=== PATIENT | female | born 1965 | race Caucasian/White ===

== ENCOUNTER 2017-01-27 10:57 | Inpatient (IN) | payer SELFPAY ==
[~2017-01-27] VITALS: Ht 162.6 cm; Wt 66.0 kg
[2017-01-27] VITALS (8 sets, daily range): BP systolic 94–106; BP diastolic 53–70; PULSE 58–75; RESP 12–18; TEMP 98–98.5; O2SAT 95–100
[2017-01-27] MEDS ORDERED: TRAZ100T6 PO (12:32)
[2017-01-27] MEDS ORDERED: ZOLO100T PO (12:32)
[2017-01-27] MEDS ORDERED: SODIUM CHLOR 0.9% 1000 ML INJ 1,000 ML IV ONE (12:40)
[2017-01-27] MEDS ORDERED: LORazepam 2 MG/ML VIAL IV PUSH ONE ×2 (12:45→14:00)
[2017-01-27] MEDS ORDERED: SODIUM CHLORIDE 0.9% FLUSH 10 ML FLUSH IVF PRN (12:45)
[2017-01-27] MEDS ORDERED: ONDANSETRON HCL 4 MG/2 ML VIAL IVP ONE (12:45)
[2017-01-27 13:14] LABS: AUTOMATED NEUTROPHIL # 3.6 TH/MM3 (1.8-7.7); BASOPHIL % 0.4 % (0.0-2.0); EOSINOPHIL # 0.1 TH/MM3 (0-0.4); EOSINOPHIL % 2.3 % (0.0-4.0); HEMATOCRIT 36.8 % (35.0-46.0); HEMO FLAGS DIFF FINAL; LYMPH % 35.1 % (9.0-44.0); LYMPHOCYTE # 2.2 TH/MM3 (1.0-4.8); MEAN CELL VOLUME 85.1 FL (80.0-100.0); MEAN CORPUSCULAR HEMOGLOBIN 29.2 PG (27.0-34.0); MEAN CORPUSCULAR HGB CONC 34.3 % (32.0-36.0); MONO % 4.4 % (0.0-8.0); NEUT % 57.8 % (16.0-70.0); PLATELET COUNT 227 TH/MM3 (150-450); RED BLOOD COUNT 4.32 MIL/MM3 (4.00-5.30); RED CELL DISTRIBUTION WIDTH 13.8 % (11.6-17.2); WHITE BLOOD COUNT 6.3 TH/MM3 (4.0-11.0)
[2017-01-27 13:25] LABS: BICARBONATE 24.8 MEQ/L (21.0-32.0); POTASSIUM 4.1 MEQ/L (3.5-5.1)
[2017-01-27] MEDS ORDERED: LORA-392 PO (15:00)
[2017-01-27] MEDS ORDERED: MECL-62 PO (15:00)
[2017-01-27] MEDS ORDERED: CARB6.5S5 RIGHT EAR (15:01)
--- NOTE | 2017-01-27 15:01 | PD ---
HPI Chief Complaint: Dizziness Time Seen by Provider: 12:06 Travel History International Travel<30 days: No Contact w/Intl Traveler<30days: No Traveled to known affect area: No History of Present Illness HPI 51-year-old female arrives to the ER with a complaint of dizziness, vertiginous in nature. She reports right otalgia. Duration a few days. No fever. Positive vomiting once yesterday with intermittent nausea since. Patient denies past medical history. No similar prior episode. Onset gradual. Timing constant. PFSH Social History Tobacco Use: Yes Allergies-Medications (Allergen,Severity, Reaction): Coded Allergies: No Known Allergies (Unverified , 01/27/17) Reported Meds & Prescriptions Reported Meds & Active Scripts Active Debrox Otic Drops (Carbamide Peroxide Otic Drops) 6.5% Soln 5-10 Drop RIGHT EAR BID PRN 5 Days up to 4 days. Ativan (Lorazepam) 0.5 Mg Tab 0.5 Mg PO Q8H PRN Meclizine (Meclizine HCl) 25 Mg Tab 25 Mg PO TID PRN Reported Trazodone (Trazodone HCl) 100 Mg Tablet 100 Mg PO HS Zoloft (Sertraline HCl) 100 Mg Tab 100 Mg PO DAILY Review of Systems Except as stated in HPI: all other systems reviewed are Neg Physical Exam Narrative GENERAL: 51 yo F, WNWD, mild distress 2/2 vertigo and/or pain SKIN: Warm and dry. HEAD: Atraumatic. Normocephalic. EYES: Pupils equal and round. No scleral icterus. No injection or drainage. No nystagmus. ENT: No nasal bleeding or discharge. Mucous membranes pink and moist. Cerumen impaction of the right ear without mastoid tenderness or tenderness about the external ear. Left ear normal. NECK: Trachea midline. No JVD. CARDIOVASCULAR: Regular rate and rhythm. RESPIRATORY: No accessory muscle use. Clear to auscultation. Breath sounds equal bilaterally. GASTROINTESTINAL: Abdomen soft, non-tender, nondistended. Hepatic and splenic margins not palpable. MUSCULOSKELETAL: Extremities without clubbing, cyanosis, or edema. No obvious deformities. NEUROLOGICAL: CN normal. Normal speech memory mentation. Finger to nose somewhat limited. Rapid alternating movement normal. PSYCHIATRIC: Appropriate mood and affect; insight and judgment normal. Data Data Last Documented VS Vital Signs Date Time Temp Pulse Resp B/P (MAP) Pulse Ox O2 Delivery O2 Flow Rate FiO2 01/27/17 16:00 62 16 105/63 (77) 100 Room Air 01/27/17 10:59 98.5 VS reviewed Orders Orders Electrocardiogram (01/27/17 12:40) Basic Metabolic Panel (Bmp) (01/27/17 12:40) Complete Blood Count With Diff (01/27/17 12:40) Ecg Monitoring (01/27/17 12:40) Iv Access Insert/Monitor (01/27/17 12:40) Oximetry (01/27/17 12:40) Ondansetron Inj (Zofran Inj) (01/27/17 12:45) Sodium Chloride 0.9% Flush (Ns Flush) (01/27/17 12:45) Sodium Chlor 0.9% 1000 Ml Inj (Ns 1000 M (01/27/17 12:40) Lorazepam Inj (Ativan Inj) (01/27/17 12:45) Mri Brain W/O Contrast (01/27/17 12:40) Lorazepam Inj (Ativan Inj) (01/27/17 14:00) Methylprednisolone So Succ Inj (Solumedr (01/27/17 16:00) Admit Order (Ed Use Only) (01/27/17 16:16) Labs Laboratory Tests Test 01/27/17 13:00 White Blood Count 6.3 TH/MM3 Red Blood Count 4.32 MIL/MM3 Hemoglobin 12.6 GM/DL Hematocrit 36.8 % Mean Corpuscular Volume 85.1 FL Mean Corpuscular Hemoglobin 29.2 PG Mean Corpuscular Hemoglobin Concent 34.3 % Red Cell Distribution Width 13.8 % Platelet Count 227 TH/MM3 Mean Platelet Volume 6.6 FL Neutrophils (%) (Auto) 57.8 % Lymphocytes (%) (Auto) 35.1 % Monocytes (%) (Auto) 4.4 % Eosinophils (%) (Auto) 2.3 % Basophils (%) (Auto) 0.4 % Neutrophils # (Auto) 3.6 TH/MM3 Lymphocytes # (Auto) 2.2 TH/MM3 Monocytes # (Auto) 0.3 TH/MM3 Eosinophils # (Auto) 0.1 TH/MM3 Basophils # (Auto) 0.0 TH/MM3 CBC Comment DIFF FINAL Differential Comment Blood Urea Nitrogen 15 MG/DL Creatinine 0.81 MG/DL Random Glucose 89 MG/DL Calcium Level 9.0 MG/DL Sodium Level 137 MEQ/L Potassium Level 4.1 MEQ/L Chloride Level 106 MEQ/L Carbon Dioxide Level 24.8 MEQ/L Anion Gap 6 MEQ/L Estimat Glomerular Filtration Rate 74 ML/MIN MDM Medical Decision Making Medical Screen Exam Complete: Yes Emergency Medical Condition: Yes Medical Record Reviewed: Yes Differential Diagnosis Peripheral vertigo, central vertigo, anemia, dehydration, acute otitis media, otalgia Narrative Course CBC & BMP Diagram 01/27/17 13:00 Calcium Level 9.0 Last 24 hours Impressions Brain MRI 01/27/17 1240 Signed Impressions: Service Date/Time: Friday, January 27, 2017 14:24 - CONCLUSION: Minimal periventricular white matter changes that could be demyelinating process. Negative for ischemic event. Duc Resendez MD FACR d/w neurology, Dr Murillo, 250mg solumedrol iv q6h d/w Dr Jernigan for [facility] Pt reports improvement after ativan and meclizine No otitis externa or mastoiditis Diagnosis Primary Impression: Vertigo Additional Impression: Right ear impacted cerumen Admitting Information Admitting Physician Requests: Observation Additional Instructions: You have a choice when it comes to health care, and we are glad that you chose [facility]. Hopefully, we have met your expectations on today's visit. You are welcome to return to [facility] at any time, as we are committed to meeting the health care needs of our community. Celestine Hsu MD Jan 27, 2017 15:01
--- NOTE | 2017-01-27 15:22 | RADRPT ---
EXAM DATE/TIME: 01/27/2017 14:24 [facility] COMPARISON: No previous studies available for comparison. INDICATIONS : Stroke. MEDICAL HISTORY : None. SURGICAL HISTORY : section. Tubal ligation. Hysterectomy. Ankle. ENCOUNTER: Initial ACUITY: 1 day PAIN SCORE: 3/10 LOCATION: cranial TECHNIQUE: Multiplanar, multisequence MRI of the brain was performed without contrast. FINDINGS: CEREBRUM: Minimal periventricular white matter changes are evident concerning for benign process. There is no restricted diffusion cyst infarction. There is no parenchymal hemorrhage. Ventricle size is normal. POSTERIOR FOSSA: The cerebellum and brainstem are intact. The 4th ventricle is midline. The cerebellopontine angle is unremarkable. The cerebellar tonsils are normal in position. DIFFUSION IMAGING: No focal areas of restricted diffusion are seen. No evidence of acute infarction. EXTRACRANIAL: The visualized portions of the orbits and paranasal sinuses are unremarkable. CONCLUSION: Minimal periventricular white matter changes that could be demyelinating process. Negative for ische vanesa event. Duc Resendez MD FACR on January 27, 2017 at 15:15 Board Certified Radiologist. This report was verified electronically.
[2017-01-27] MEDS ORDERED: methylPREDNISolone SOD SUCC 125 MG/2 ML VIAL IV PUSH ONE (16:00)
--- NOTE | 2017-01-27 16:51 | EKG ---
Date Performed: 01/27/2017 Time Performed: 12:51:40 PTAGE: 51 years EKG: SINUS BRADYCARDIA BORDERLINE ECG NO PREVIOUS TRACING DOCTOR: Keith Patel Interpretating Date/Time 01/27/2017 16:50:51
[2017-01-27] MEDS ORDERED: MORPHINE SULFATE 4 MG/ML INJ IV PUSH PRN ×2 (18:00)
[2017-01-27] MEDS ORDERED: MECLIZINE HCL 25 MG TAB PO PRN (18:00)
[2017-01-27] MEDS ORDERED: PROCHLORPERAZINE 25 MG SUPP RECTAL PRN (18:00)
[2017-01-27] MEDS ORDERED: NALOXONE HCL 0.4 MG/ML AMP IV PUSH PRN (18:00)
[2017-01-27] MEDS ORDERED: BISACODYL 10 MG SUPP RECTAL PRN (18:00)
[2017-01-27] MEDS ORDERED: ACETAMINOPHEN 325 MG TAB PO PRN ×2 (18:00)
[2017-01-27] MEDS ORDERED: SENNOSIDES 8.6 MG TAB PO PRN (18:00)
[2017-01-27] MEDS ORDERED: SODIUM CHLOR 0.9% 1000 ML INJ 1,000 ML IV SCH (18:00)
[2017-01-27] MEDS ORDERED: MECLIZINE HCL 25 MG TAB PO SCH (18:00)
[2017-01-27] MEDS ORDERED: oxyCODONE/ACETAMINOPHEN 5 MG/325 MG TAB PO PRN (18:00)
[2017-01-27] MEDS ORDERED: LACTULOSE SYRUP 20 GM/30 ML CUP PO PRN (18:00)
[2017-01-27] MEDS ORDERED: MAGNESIUM HYDROXIDE SUSP 30 ML CUP PO PRN (18:00)
[2017-01-27] MEDS ORDERED: RESP: ALBUTEROL 2.5 MG/IPRATROPIUM 0.5 MG NEB (PRN) NEB (18:00)
[2017-01-27] MEDS ORDERED: SODIUM CHLORIDE 0.9% FLUSH 10 ML FLUSH IV FLUSH PRN (18:00)
--- NOTE | 2017-01-27 18:15 | HHI.HP ---
[facility] Primary Care Physician Admission Diagnosis Vertigo; Poss MS Diagnoses: (1) Multiple sclerosis Diagnosis: Principal (2) Tobacco abuse Diagnosis: Secondary (3) Anxiety Diagnosis: Secondary (4) Depression Diagnosis: Secondary (5) Right ear impacted cerumen Diagnosis: Principal (6) Vertigo Diagnosis: Principal Chief Complaint: Dizziness Travel History International Travel<30 Days: No Contact w/Intl Traveler <30 Da: No Traveled to Known Affected Are: No History of Present Illness 51-year-old female arrives to the ER with a complaint of dizziness, vertiginous in nature. She reports right otalgia. Duration a few days. No fever. Positive vomiting once yesterday with intermittent nausea since. Patient denies past medical history. No similar prior episode. Onset gradual. Timing constant. Still having vertigo type symptoms when sitting up Review of Systems Constitutional: COMPLAINS OF: Dizziness, DENIES: Diaphoretic episodes, Fatigue , Fever, Weight gain, Weight loss, Chills, Change in appetite Endocrine: DENIES: Abnorml menstrual pattern, Heat/cold intolerance Eyes: DENIES: Blurred vision, Diplopia, Eye inflammation, Eye pain Ears, nose, mouth, throat: COMPLAINS OF: Vertigo, Ear Pain, DENIES: Tinnitus, Hearing loss, Nasal discharge, Oral lesions, Throat pain, Hoarseness, Running Nose, Epistaxis, Sinus Pain, Odynophagia Respiratory: DENIES: Apneas, Cough, Snoring, Wheezing Cardiovascular: DENIES: Chest pain, Palpitations, Syncope, Dyspnea on Exertion Gastrointestinal: DENIES: Abdominal pain, Black stools, Bloody stools, Constipation Genitourinary: DENIES: Abnormal vaginal bleeding, Dysmenorrhea, Vaginal discharge Musculoskeletal: DENIES: Joint pain, Muscle aches, Stiffness Integumentary: DENIES: Abnormal pigmentation, Pruritus Hematologic/lymphatic: DENIES: Bruising, Lymphadenopathy Immunologic/allergic: DENIES: Eczema, Urticaria Neurologic: COMPLAINS OF: Poor Balance, DENIES: Abnormal gait, Headache, Localized weakness, Paresthesias, Seizures, Speech Problems, Tremor Psychiatric: COMPLAINS OF: Anxiety, Depression, DENIES: Confusion, Mood changes , Hallucinations, Agitation, Suicidal Ideation, Homicidal Ideation, Delusions Past Family Social History Past Medical History Anxiety depression Tobacco abuse History of hysterectomy history of tubal ligation history of sections 3 history of multiple right ankle surgeries Past Surgical History Radical hysterectomy Tubal ligation 3 sections Multiple right ankle surgeries Reported Medications Reported Meds & Active Scripts Active Reported Trazodone (Trazodone HCl) 100 Mg Tablet 100 Mg PO HS Zoloft (Sertraline HCl) 100 Mg Tab 100 Mg PO DAILY Allergies: Coded Allergies: No Known Allergies (Unverified , 01/27/17) Active Ordered Medications Current Medications Ondansetron HCl (Zofran Inj) 4 mg ONCE ONCE IVP Last administered on 12:58; Start 01/27/17 at 12:45; Stop 01/27/17 at 12:46; Status DC Sodium Chloride (NS Flush) 2 ml UNSCH PRN IVF FLUSH AFTER USING IV ACCESS Last administered on 01/27/17 12:59; Start 01/27/17 at 12:45 Sodium Chloride 1,000 ml @ 1,000 mls/hr Q1H ONCE IV Last administered on 12:59; Start 01/27/17 at 12:40; Stop 01/27/17 at 13:39; Status DC Lorazepam (Ativan Inj) 1 mg ONCE ONCE IV PUSH Last administered on 01/27/17 12:59; Start 01/27/17 at 12:45; Stop 01/27/17 at 12:46; Status DC Lorazepam (Ativan Inj) 0.5 mg ONCE ONCE IV PUSH Last administered on 14:12; Start 01/27/17 at 14:00; Stop 01/27/17 at 14:01; Status DC Methylprednisolone Sodium Succinate (SoluMEDROL INJ) 250 mg ONCE ONCE IV PUSH Last administered on 01/27/17 16:41; Start 01/27/17 at 16:00; Stop 01/27/17 at 16:01; Status DC Methylprednisolone Sodium Succinate (SoluMEDROL INJ) 250 mg Q6HR IV PUSH ; Start 01/27/17 at 18:00; Status UNV Sertraline HCl (Zoloft) 100 mg DAILY PO ; Start 01/28/17 at 09:00; Status UNV Non-Formulary Medication 100 mg HS PO ; Start 01/27/17 at 21:00; Status UNV Sodium Chloride 1,000 ml @ 100 mls/hr Q10H IV ; Start 01/27/17 at 17:49; Status UNV Sodium Chloride (NS Flush) 2 ml UNSCH PRN IV FLUSH FLUSH AFTER USING IV ACCESS ; Start 01/27/17 at 18:00; Status UNV Sodium Chloride (NS Flush) 2 ml BID IV FLUSH ; Start 01/27/17 at 21:00; Status UNV Acetaminophen (Tylenol) 650 mg Q4H PRN PO TEMP > 100.4; Start 01/27/17 at 18:00 ; Status UNV Ondansetron HCl (Zofran Inj) 4 mg Q6H PRN IVP NAUSEA OR VOMITING; Start at 18:00; Status UNV Prochlorperazine (Compazine Supp) 25 mg Q12H PRN SD NAUSEA OR VOMITING; Start 01/27/17 at 18:00; Status UNV Acetaminophen (Tylenol) 650 mg Q6H PRN PO PAIN SCALE 1 TO 2; Start 01/27/17 at 18:00; Status UNV Oxycodone/ Acetaminophen (Percocet 5-325 Mg) 1 tab Q6H PRN PO PAIN SCALE 3 TO 5; Start 01/27/17 at 18:00; Status UNV Oxycodone/ Acetaminophen (Percocet 10-325 Mg) 1 tab Q6H PRN PO PAIN SCALE 6 TO 10; Start 01/27/17 at 18:00; Status UNV Morphine Sulfate (Morphine Inj) 2 mg Q3H PRN IV PUSH Pain 3-5; if unable to take PO; Start 01/27/17 at 18:00; Status UNV Morphine Sulfate (Morphine Inj) 4 mg Q3H PRN IV PUSH Pain 6-10;if unable to take PO; Start 01/27/17 at 18:00; Status UNV Naloxone HCl (Narcan Inj) 0.4 mg UNSCH PRN IV PUSH SEE LABEL COMMENTS; Start at 18:00; Status UNV Senna/Docusate Sodium (Ruthy-Colace) 1 tab BID PO ; Start 01/27/17 at 21:00; Status UNV Magnesium Hydroxide (Milk Of Magnesia Liq) 30 ml Q12H PRN PO MILD - MODERATE CONSTIPATION; Start 01/27/17 at 18:00; Status UNV Sennosides (Senokot) 17.2 mg Q12H PRN PO MODERATE - SEVERE CONSTIPATION; Start 01/27/17 at 18:00; Status UNV Bisacodyl (Dulcolax Supp) 10 mg DAILY PRN RECTAL SEVERE CONSITIPATION; Start at 18:00; Status UNV Lactulose (Lactulose Liq) 30 ml DAILY PRN PO SEVERE CONSITIPATION; Start at 18:00; Status UNV Nicotine (Habitrol 14 Mg Patch.24 Hr) 1 patch ONCE ONCE T-DERMAL ; Start at 18:00; Stop 01/27/17 at 18:01; Status UNV Nicotine (Habitrol 14 Mg Patch.24 Hr) 1 patch DAILY T-DERMAL ; Start 01/28/17 at 09:00; Status UNV Miscellaneous Information 1 DAILY T-DERMAL ; Start 01/28/17 at 09:00; Status UNV Pantoprazole Sodium (Protonix) 40 mg Q12HR PO ; Start 01/27/17 at 21:00; Status UNV Guaifenesin (Mucinex Er) 600 mg BID PO ; Start 01/27/17 at 21:00; Status UNV Albuterol/ Ipratropium (Duoneb Neb) 1 ampule Q4HR NEB PRN NEB SHORTNESS OF BREATH; Start 01/27/17 at 18:00; Status UNV Meclizine HCl (Antivert) 25 mg Q6HR PO ; Start 01/27/17 at 18:00; Status UNV Meclizine HCl (Antivert) 25 mg Q6H PRN PO VERTIGO; Start 01/27/17 at 18:00; Status UNV Lorazepam (Ativan) 0.5 mg Q6H PRN PO VERTIGO/NAUSEA; Start 01/27/17 at 18:00; Status UNV Sodium Chloride 1,000 ml @ 100 mls/hr Q10H IV ; Start 01/27/17 at 18:00; Status UNV Family History Tobacco abuse Possible depression Social History Smokes half a pack plus a day denies any illicits Physical Exam Vital Signs Vital Signs Date Time Temp Pulse Resp B/P (MAP) Pulse Ox O2 Delivery O2 Flow Rate FiO2 01/27/17 16:00 62 16 105/63 (77) 100 Room Air 01/27/17 13:06 58 16 106/70 (82) 100 Room Air 01/27/17 13:03 16 98 Room Air 01/27/17 12:33 16 98 Room Air 01/27/17 10:59 98.5 73 12 104/58 (73) 98 Physical Exam GENERAL: This is a well-nourished, well-developed patient, in moderate distress. SKIN: No rashes, ecchymoses or lesions. Cool and dry. HEAD: Atraumatic. Normocephalic. No temporal or scalp tenderness. EYES: Pupils equal round and reactive. Extraocular motions intact. No scleral icterus. No injection or drainage. Feels dizzy upon sitting up ENT: Nose without bleeding, purulent drainage or septal hematoma. Throat without erythema, tonsillar hypertrophy or exudate. Uvula midline. Airway patent. Tongue is midline NECK: Trachea midline. No JVD or lymphadenopathy. Supple, nontender, no meningeal signs. CARDIOVASCULAR: Regular rate and rhythm without murmurs, gallops, or rubs. S1 and S2 no S3 or S4 RESPIRATORY: Clear to auscultation. Breath sounds equal bilaterally. No wheezes , rales, or rhonchi. GASTROINTESTINAL: Abdomen soft, non-tender, nondistended. No hepato-splenomegaly , or palpable masses. No guarding. MUSCULOSKELETAL: Extremities without clubbing, cyanosis, or edema. No joint tenderness, effusion, or edema noted. No calf tenderness. Negative Homans sign bilaterally. NEUROLOGICAL: Awake and alert. Cranial nerves II through XII intact. Motor and sensory grossly within normal limits. Five out of 5 muscle strength in all muscle groups. Normal speech. Still has some dizziness Feels the room spinning Insight and judgment is good Mood and behaviors appropriate Laboratory Laboratory Tests Test 01/27/17 13:00 White Blood Count 6.3 Red Blood Count 4.32 Hemoglobin 12.6 Hematocrit 36.8 Mean Corpuscular Volume 85.1 Mean Corpuscular Hemoglobin 29.2 Mean Corpuscular Hemoglobin Concent 34.3 Red Cell Distribution Width 13.8 Platelet Count 227 Mean Platelet Volume 6.6 Neutrophils (%) (Auto) 57.8 Lymphocytes (%) (Auto) 35.1 Monocytes (%) (Auto) 4.4 Eosinophils (%) (Auto) 2.3 Basophils (%) (Auto) 0.4 Neutrophils # (Auto) 3.6 Lymphocytes # (Auto) 2.2 Monocytes # (Auto) 0.3 Eosinophils # (Auto) 0.1 Basophils # (Auto) 0.0 CBC Comment DIFF FINAL Differential Comment Blood Urea Nitrogen 15 Creatinine 0.81 Random Glucose 89 Calcium Level 9.0 Sodium Level 137 Potassium Level 4.1 Chloride Level 106 Carbon Dioxide Level 24.8 Anion Gap 6 Estimat Glomerular Filtration Rate 74 Result Diagram: 01/27/17 1300 01/27/17 1300 Imaging Last Impressions Brain MRI 01/27/17 1240 Signed Impressions: Service Date/Time: Friday, January 27, 2017 14:24 - CONCLUSION: Minimal periventricular white matter changes that could be demyelinating process. Negative for ischemic event. Duc Resendez MD FACR Capefei VTE Risk Assessment Caprini VTE Risk Assessment: No/Low Risk (score <= 1) Caprini Risk Assessment Model Point Value = 1 Point Value = 2 Point Value = 3 Point Value = 5 Age 41-60 Minor surgery BMI > 25 kg/m2 Swollen legs Varicose veins or History of unexplained or recurrent spontaneous Oral contraceptives or hormone replacement Sepsis (< 1 month) Serious lung disease, including pneumonia (< 1 month) Abnormal pulmonary function Acute myocardial infarction Congestive heart failure (< 1 month) History of inflammatory bowel disease Medical patient at bed rest Age 61-74 Arthroscopic surgery Major open surgery (> 45 min) Laparoscopic surgery (> 45 min) Malignancy Confined to bed (> 72 hours) Immobilizing plaster cast Central venous access Age >= 75 History of VTE Family history of VTE Factor V Leiden Prothrombin [id number] Lupus anticoagulant Anticardiolipin antibodies Elevated serum homocysteine Heparin-induced thrombocytopenia Other congenital or acquired thrombophilia Stroke (< 1 month) Elective arthroplasty Hip, pelvis, or leg fracture Acute spinal cord injury (< 1 month) Prophylaxis Regimen Total Risk Factor Score Risk Level Prophylaxis Regimen 0-1 Low Early ambulation 2 Moderate Order ONE of the following: *Sequential Compression Device (SCD) *Heparin 5000 units SQ BID 3-4 Higher Order ONE of the following medications: *Heparin 5000 units SQ TID *Enoxaparin/Lovenox 40 mg SQ daily (WT < 150 kg, CrCl > 30 mL/min) *Enoxaparin/Lovenox 30 mg SQ daily (WT < 150 kg, CrCl > 10-29 mL/min) *Enoxaparin/Lovenox 30 mg SQ BID (WT < 150 kg, CrCl > 30 mL/min) AND/OR *Sequential Compression Device (SCD) 5 or more Highest Order ONE of the following medications: *Heparin 5000 units SQ TID (Preferred with Epidurals) *Enoxaparin/Lovenox 40 mg SQ daily (WT < 150 kg, CrCl > 30 mL/min) *Enoxaparin/Lovenox 30 mg SQ daily (WT < 150 kg, CrCl > 10-29 mL/min) *Enoxaparin/Lovenox 30 mg SQ BID (WT < 150 kg, CrCl > 30 mL/min) AND *Sequential Compression Device (SCD) Assessment and Plan Problem List: (1) Multiple sclerosis ICD Code: G35 - Multiple sclerosis (2) Tobacco abuse ICD Code: Z72.0 - Tobacco use (3) Depression ICD Code: F32.9 - Major depressive disorder, single episode, unspecified (4) Anxiety ICD Code: F41.9 - Anxiety disorder, unspecified (5) Right ear impacted cerumen ICD Code: H61.21 - Impacted cerumen, right ear Status: Acute (6) Vertigo ICD Code: R42 - Dizziness and giddiness Status: Acute Assessment and Plan Vertigo has had an MRI that was abnormal we'll consult Dr. Murillo of neurology continue on Ativan as needed and meclizine as needed Some concern with the abnormal MRI of multiple sclerosis has been started on high-dose Solu-Medrol 250 mg IV every 6 hours we will continue on Protonix to prevent issues with her stomach Tobacco abuse smoking cessation recommended continue on NicoDerm Anxiety depression continue on home medications her trazodone and Zoloft Continue on SCDs and CELSO hose and GI prophylaxis with Protonix twice a day Will ask physical therapy and occupational therapy to eval and treat Code Status Full code Discussed Condition With Discussed with ER physician discussed with RN discussed with patient Physician Certification 2 Midnight Certification Type: Admission for Inpatient Services Order for Inpatient Services The services are ordered in accordance with Medicare regulations or non- Medicare payer requirements, as applicable. In the case of services not specified as inpatient-only, they are appropriately provided as inpatient services in accordance with the 2-midnight benchmark. Estimated LOS (days): 3 3 days is the estimated time the patient will need to remain in the hospital, assuming treatment plan goals are met and no additional complications. Post-Hospital Plan: Not yet determined Duc Jernigan DO Jan 27, 2017 18:15
--- NOTE | 2017-01-27 18:33 | RADRPT ---
EXAM DATE/TIME: 01/27/2017 18:14 [facility] COMPARISON: No previous studies available for comparison. INDICATIONS : Dizziness, weakness for 2 days MEDICAL HISTORY : None. SURGICAL HISTORY : None. ENCOUNTER: Initial ACUITY: 2 days PAIN SCORE: 0/10 LOCATION: Bilateral chest FINDINGS: PA and lateral views of the chest demonstrate the lungs to be symmetrically aerated without evidence of mass, infiltrate or effusion. The cardiomediastinal contours are unremarkable. Osseous structure s are intact. CONCLUSION: No evidence of acute cardiopulmonary disease. Manjinder Dewitt MD on January 27, 2017 at 18:32 Board Certified Radiologist. This report was verified electronically.
[2017-01-27] MEDS: SODIUM CHLOR 0.9% 1000 ML INJ 1,000 ML IV SCH (18:52)
[2017-01-27] MEDS ORDERED: NICOTINE 14 MG/24 HR PATCH T-DERMAL ONE (19:00)
[2017-01-27 19:22] LABS: CREATINE KINASE 40 U/L (26-192)
[2017-01-27] MEDS: SODIUM CHLORIDE 0.9% FLUSH 10 ML FLUSH IV FLUSH SCH (19:47)
[2017-01-27] MEDS ORDERED: traZODone HCL 100 MG TAB PO SCH (21:00)
--- NOTE | 2017-01-27 21:31 | EKG ---
Date Performed: 01/27/2017 Time Performed: 18:28:33 PTAGE: 51 years EKG: Sinus rhythm NORMAL ECG PREVIOUS TRACING : 01/27/2017 12.51 No significant change from previous tracing noted. DOCTOR: Keith Patel Interpretating Date/Time 01/27/2017 21:29:05
[2017-01-27] MEDS: guaiFENesin E.R. 600 MG TAB PO SCH (21:33)
[2017-01-27] MEDS: oxyCODONE/ACETAMINOPHEN 10 MG/325 MG TAB PO PRN (21:34)
[2017-01-27] MEDS: PANTOPRAZOLE SOD 40 MG DELAYED RELEASE TAB PO SCH (21:34)
[2017-01-27] MEDS: DOCUSATE SODIUM 50 MG/SENNA 8.6 MG TAB PO SCH (21:34)
[2017-01-27] MEDS: LORazepam 0.5 MG TAB PO PRN (23:44)
[2017-01-27] MEDS: methylPREDNISolone SOD SUCC 125 MG/2 ML VIAL IV PUSH SCH (23:44)
[2017-01-28 01:09] LABS: AUTOMATED NEUTROPHIL # 5.3 TH/MM3 (1.8-7.7); BASOPHIL % 0.6 % (0.0-2.0); EOSINOPHIL % 0.1 % (0.0-4.0); HEMO FLAGS DIFF FINAL; LYMPH % 8.9 % (9.0-44.0); LYMPHOCYTE # 0.5 TH/MM3 (1.0-4.8); MEAN CELL VOLUME 84.9 FL (80.0-100.0); MEAN CORPUSCULAR HEMOGLOBIN 28.8 PG (27.0-34.0); MONO % 0.4 % (0.0-8.0); PLATELET COUNT 233 TH/MM3 (150-450); RED BLOOD COUNT 4.36 MIL/MM3 (4.00-5.30); RED CELL DISTRIBUTION WIDTH 14.1 % (11.6-17.2); WHITE BLOOD COUNT 5.8 TH/MM3 (4.0-11.0)
[2017-01-28 01:26] LABS: ALT (GPT) 26 U/L (10-53); ANION GAP 5 MEQ/L (5-15); AST (GOT) 9 U/L (15-37); BICARBONATE 25.7 MEQ/L (21.0-32.0); BLOOD UREA NITROGEN 19 MG/DL (7-18); CHLORIDE 107 MEQ/L (98-107); GLOMERULAR FILTRATION RATE 71 ML/MIN (>89); MAGNESIUM 2.3 MG/DL (1.5-2.5); POTASSIUM 4.5 MEQ/L (3.5-5.1); SODIUM (NA) 138 MEQ/L (136-145)
[2017-01-28 01:35] LABS: ALKALINE PHOSPHATASE 70 U/L (45-117); FREE T4 0.72 NG/DL (0.76-1.46); TOTAL BILIRUBIN ADULT 0.3 MG/DL (0.2-1.0)
[2017-01-28 01:37] LABS: CREATINE KINASE 39 U/L (26-192)
[2017-01-28] MEDS: oxyCODONE/ACETAMINOPHEN 10 MG/325 MG TAB PO PRN ×3 (03:33→15:58)
[2017-01-28 04:00] VITALS: BP 100/63; PULSE 69; RESP 16; TEMP 97.7; O2SAT 97
[2017-01-28] MEDS: SODIUM CHLOR 0.9% 1000 ML INJ 1,000 ML IV SCH (05:12)
[2017-01-28] MEDS: methylPREDNISolone SOD SUCC 125 MG/2 ML VIAL IV PUSH SCH ×2 (05:13→11:26)
[2017-01-28] MEDS: LORazepam 0.5 MG TAB PO PRN ×3 (05:13→15:57)
[2017-01-28 07:35] VITALS: PULSE 70
[2017-01-28 07:58] VITALS: BP 105/69; PULSE 70; RESP 18; TEMP 96.6; O2SAT 96
[2017-01-28] MEDS: PANTOPRAZOLE SOD 40 MG DELAYED RELEASE TAB PO SCH (08:14)
[2017-01-28] MEDS: DOCUSATE SODIUM 50 MG/SENNA 8.6 MG TAB PO SCH (08:14)
[2017-01-28] MEDS: guaiFENesin E.R. 600 MG TAB PO SCH (08:14)
[2017-01-28] MEDS: ONDANSETRON HCL 4 MG/2 ML VIAL IVP PRN ×2 (08:20→16:35)
[2017-01-28] MEDS ORDERED: SERTRALINE HCL 100 MG TAB PO SCH (09:00)
[2017-01-28] MEDS: SODIUM CHLORIDE 0.9% FLUSH 10 ML FLUSH IV FLUSH SCH (09:00)
[2017-01-28] MEDS ORDERED: REMOVE OLD PATCH T-DERMAL SCH (09:00)
[2017-01-28] MEDS ORDERED: NICOTINE 14 MG/24 HR PATCH T-DERMAL SCH (09:00)
[2017-01-28] MEDS ORDERED: INFLUENZA VIRUS VACCINE (QUADRIVALENT) 0.5 ML SYR IM ONE (10:00)
[2017-01-28] MEDS ORDERED: PNEUMOCOCCAL POLYVALENT INJ 25 MCG/0.5 ML SYR IM ONE (10:00)
[2017-01-28 11:08] LABS: HEMOGLOBIN A1b 0.9 %; HEMOGLOBIN Ao 85.3 %; HEMOGLOBIN F 1.1 %; HEMOGLOBIN LA1C 2.2 %; HEMOGLOBIN P3 3.6 %
[2017-01-28 11:17] VITALS: O2SAT 97
[2017-01-28 12:00] VITALS: BP 106/62; PULSE 69; RESP 18; TEMP 96; O2SAT 94
[2017-01-28] MEDS ORDERED: MECLIZINE HCL 25 MG TAB PO SCH (14:00)
--- NOTE | 2017-01-28 15:19 | MB ---
cc: ANTOINETTE GALVEZ M.D. DATE OF CONSULTATION: 01/28/2017. REASON FOR CONSULTATION: Vertigo. Rule out multiple sclerosis. HISTORY OF PRESENT ILLNESS: Ms. Hagen is a 51-year-old woman who on began to experience a vertigo feeling with the room spinning. This is mainly with position change. If she got up or turned, she had a severe spinning sensation. She also had pain in the right ear. She had nausea and vomiting. She had no other neurologic complaints. No double vision, focal weakness or numbness. She presented to the emergency room yesterday. MRI of the brain was done which revealed some small areas of increased signal on the FLAIR and T2 images, nonspecific, but possibly representing demyelinating disease. I spoke to Dr. Hsu and recommended starting Solu-Medrol for the possibility of demyelinating disease. This morning she feels that she is about the same. She still has vertigo. PAST MEDICAL HISTORY: 1. Hysterectomy. 2. Tubal ligation. 3. section. 4. Ankle surgery. MEDICATIONS AT HOME: 1. Trazodone. 2. Zoloft. ALLERGIES: NO KNOWN ALLERGIES. NEUROLOGICAL EXAMINATION: VITAL SIGNS: Blood pressure is 106/62, pulse 69, respiratory rate 18, temperature 96 degrees. HIGHER CORTICAL FUNCTIONS: Normal. CRANIAL NERVES: Intact. The extraocular movements are normal. There is no nystagmus. The pupils are equal and reactive. There is no Greg-Oksana pupil. There is no facial asymmetry. MOTOR EXAM: On motor exam, she is 5/5 strength in all groups in both upper and lower extremities. There is no drift. Fine motor skills are within normal limits. REFLEXES: Symmetric. CEREBELLAR: Cerebellar testing shows no sign of dysmetria. IMAGING STUDIES: I did review the MRI of the brain. She has a few areas of increased signal in the periventricular white matter. I feel this is most likely nonspecific. These are not the typical periventricular plaques of multiple sclerosis with Segovia fingers. LABS: White count 5800, hemoglobin 12.6, hematocrit 37%, platelet count 273,000. Sodium is 138, potassium 4.5, chloride 107, carbon dioxide 25.7, the BUN is 19, creatinine 0.84, GFR is 71, glucose 141, hemoglobin A1c is 5.6. AST 9, ALT 26, alkaline phosphatase 70. TSH 0.629. IMPRESSION: Vertigo, which I think is probably more of a vestibular problems, probable benign positional vertigo. I do not feel the patient has multiple sclerosis after reviewing the MRI and also her history and exam is not consistent with this. RECOMMENDATIONS: 1. Stop the Solu-Medrol. 2. Will try Meclizine. 3. The patient is stable neurologically for discharge when okay with the primary service. MD BRITTANY Dove/ADI /1:53 PM /3:05 PM
[2017-01-28] MEDS ORDERED: AUGM875T3 PO (16:12)
[2017-01-28] MEDS ORDERED: SERO25TA PO (16:12)
[2017-01-28] MEDS ORDERED: MECL1TAB42 PO (16:12)
[2017-01-28] MEDS ORDERED: CIPRHC10A EACH EAR (16:12)
--- NOTE | 2017-01-29 00:41 | HHI.DS ---
Discharge Summary Admission Date Jan 27, 2017 at 17:57 Discharge Date: Jan 28, 2017 Admitting Diagnosis Vertigo; Poss MS (1) Multiple sclerosis ICD Code: G35 - Multiple sclerosis (2) Tobacco abuse ICD Code: Z72.0 - Tobacco use (3) Depression ICD Code: F32.9 - Major depressive disorder, single episode, unspecified (4) Anxiety ICD Code: F41.9 - Anxiety disorder, unspecified (5) Right ear impacted cerumen ICD Code: H61.21 - Impacted cerumen, right ear Status: Acute (6) Vertigo ICD Code: R42 - Dizziness and giddiness Status: Acute Procedures no invasive procedures. Brief History - From Admission 51-year-old female arrives to the ER with a complaint of dizziness, vertiginous in nature. She reports right otalgia. Duration a few days. No fever. Positive vomiting once yesterday with intermittent nausea since. Patient denies past medical history. No similar prior episode. Onset gradual. Timing constant. Still having vertigo type symptoms when sitting up CBC/BMP: 01/28/17 0057 01/28/17 0057 Significant Findings Laboratory Tests Test 01/27/17 13:00 01/27/17 18:30 01/28/17 00:57 Mean Platelet Volume 6.6 FL (7.0-11.0) Estimat Glomerular Filtration Rate 74 ML/MIN (>89) 71 ML/MIN (>89) Troponin I LESS THAN 0.02 NG/ML LESS THAN 0.02 NG/ML Neutrophils (%) (Auto) 90.0 % (16.0-70.0) Lymphocytes (%) (Auto) 8.9 % (9.0-44.0) Lymphocytes # (Auto) 0.5 TH/MM3 (1.0-4.8) Blood Urea Nitrogen 19 MG/DL (7-18) Random Glucose 141 MG/DL (74-106) Aspartate Amino Transf (AST/SGOT) 9 U/L (15-37) Free Thyroxine 0.72 NG/DL (0.76-1.46) Imaging Last Impressions Chest X-Ray 01/27/17 1749 Signed Impressions: Service Date/Time: Friday, January 27, 2017 18:14 - CONCLUSION: No evidence of acute cardiopulmonary disease. Manjinder Dewitt MD Brain MRI 01/27/17 1240 Signed Impressions: Service Date/Time: Friday, January 27, 2017 14:24 - CONCLUSION: Minimal periventricular white matter changes that could be demyelinating process. Negative for ischemic event. Duc Resendez MD FACR PE at Discharge GENERAL: patient sitting up in bed. Appears comfortable. Alert and oriented 3. SKIN: Warm and dry. HEAD: Normocephalic.right ear with otitis externa. No cerumen. Right eardrum poorly visualized secondary to canal tenderness, however appears opaque, without erythema. EYES: No scleral icterus. No injection or drainage. NECK: Supple, trachea midline. No JVD. CARDIOVASCULAR: Regular rate and rhythm without murmurs, gallops, or rubs. RESPIRATORY: Breath sounds equal bilaterally. No accessory muscle use. GASTROINTESTINAL: Abdomen soft, non-tender, nondistended. MUSCULOSKELETAL: No cyanosis, or edema. BACK: Nontender without obvious deformity. No CVA tenderness. Pt update on day of discharge Date of service 01/28/17. Patient seen the morning of 01/28/17. Says she is overall feeling all right, however still with dizziness, however able to walk. Denies any chest pain or shortness of breath. Hospital Course Patient had an MRI brain with some abnormalities as above. She was started on high-dose steroids without improvement. Neurology was consult. Patient was started on meclizine with improvement, and will be sent home on meclizine. Patient was also found to have otitis externa, possibly otitis media, with acute on chronic sinusitis. She was discharged with antibiotic ear drops, as well as a course of Augmentin. Patient requested a prescription for Seroquel which she has used in the past, says this helps with her anxiety. Antidepressants were continued. Pt Condition on Discharge: Good Discharge Disposition: Discharge Home Discharge Time: > 30 minutes Discharge Instructions DIET: Follow Instructions for: As Tolerated, No Restrictions Speech Therapy-Diet Recommends: Regular Activities you can perform: Regular-No Restrictions Follow up Referrals: Neurology - 1 Week with Alfredito Murillo PhD MD PCP Follow-up - 1 Week New Medications: Amoxicillin-Clavulanate (Augmentin) 875-125 Mg Tab 1 TAB PO BID for Infection for 10 Days, #20 TAB 0 Refills Ciprofloxacin-Hydrocortisone Otic Drops (Cipro Hc Otic Drops) 0.2-1% Susp 3 DROP EACH EAR BID for Infection for 10 Days, #1 BOTTLE 0 Refills Quetiapine (Seroquel) 25 Mg Tab 25 MG PO HS for Anxiety, #30 TAB 0 Refills Meclizine HCl (Meclizine 25) 25 Mg Tab 25 MG PO Q6H PRN for VERTIGO for 14 Days, #56 TAB Continued Medications: Sertraline (Zoloft) 100 Mg Tab 100 MG PO DAILY, #30 TAB 0 Refills Trazodone (Trazodone) 100 Mg Tablet 100 MG PO HS for Control Depression, #30 TAB 0 Refills Paul García MD Jan 29, 2017 00:41
== END 2017-01-28 17:05 | disposition home or self-care (01) | DRG 149 ==
LOC: NEPD 10:57 → NEDA 16:18 → OBSVTOIN 17:57 → NEPGCP 21:01 → N06A 22:46
PROVIDERS: ADMIT Internal Medicine; ATTEND Internal Medicine
DX: H81.11 Benign paroxysmal vertigo, right ear (principal); F32.9 Major depressive disorder, single episode, unspecified; F41.9 Anxiety disorder, unspecified; F17.210 Nicotine dependence, cigarettes, uncomplicated; H61.21 Impacted cerumen, right ear; H66.91 Otitis media, unspecified, right ear; J01.91 Acute recurrent sinusitis, unspecified; H60.91 Unspecified otitis externa, right ear; Z23 Encounter for immunization
CPT/HCPCS: 70551; 71020; 80048; 80053; 82550; 82948; 83036; 83735; 84100; 84439; 84443; 84484; 85025; 90471; 90472; 90686; 90732; 93005; 96361; 96374; 96375; 96376; G0008; G0009; J2060; J2270; J2405; J2930; J7030; Q2038

== ENCOUNTER 2017-02-02 11:23 | Emergency (ER) | payer SELFPAY ==
[~2017-02-02] VITALS: Ht 165.1 cm; Wt 65.0 kg
[~2017-02-02 11:23] MED LIST: AUGM875T3 PO; CIPRHC10A EACH EAR; MECL1TAB42 PO; SERO25TA PO; TRAZ100T6 PO; ZOLO100T PO
[2017-02-02 11:25] VITALS: BP 129/98; PULSE 97; RESP 16; TEMP 98.4; O2SAT 98
[2017-02-02] MEDS ORDERED: SODIUM CHLOR 0.9% 1000 ML INJ 1,000 ML IV SCH (11:40)
--- NOTE | 2017-02-02 11:41 | PD ---
HPI Chief Complaint: GI Complaint Time Seen by Provider: 11:37 Travel History International Travel<30 days: No Contact w/Intl Traveler<30days: No Traveled to known affect area: No History of Present Illness HPI 51 year old female with history of remote IVDA, anxiety, depression currently being treated for an otitis media, presents to the ED for evaluation of vomiting "at least 30 times" over the last 2 hours. Pt states she took her medication and antibiotics and then the vomiting started. She reports mild epigastric burning following vomiting, but denies significant pain. No chest pain or tightness. No shortness of breath. Denies alcohol consumption. Denies fever or chills. No urinary or bowel changes. Has history of hysterectomy. No other symptoms to report. PFSH Past Medical History Blood Disorders: No Anxiety: Yes Depression: Yes Cancer: Yes (precancerous ovarian cells) Cardiovascular Problems: No Endocrine: No Genitourinary: No Immune Disorder: No Musculoskeletal: Yes (lower back pain) Neurologic: Yes (seizure at age 1) Psychiatric: Yes Reproductive: No Respiratory: No ?: Not Social History Tobacco Use: Yes Allergies-Medications (Allergen,Severity, Reaction): Coded Allergies: No Known Allergies (Unverified , 02/02/17) Reported Meds & Prescriptions Reported Meds & Active Scripts Active Omeprazole 40 Mg Cap 40 Mg PO DAILY Phenergan (Promethazine HCl) 25 Mg Tablet 25 Mg PO Q6H PRN Seroquel (Quetiapine Fumarate) 25 Mg Tab 25 Mg PO HS Augmentin (Amoxicillin-Clavulanate) 875-125 Mg Tab 1 Tab PO BID 10 Days Meclizine 25 (Meclizine HCl) 25 Mg Tab 25 Mg PO Q6H PRN 14 Days Reported Zoloft (Sertraline HCl) 100 Mg Tab 100 Mg PO DAILY Review of Systems Except as stated in HPI: all other systems reviewed are Neg Physical Exam Narrative GENERAL: Well nourished female patient ambulatory and in not acute distress. SKIN: Warm and dry. HEAD: Atraumatic. Normocephalic. EYES: Pupils equal and round. No scleral icterus. No injection or drainage. ENT: No nasal bleeding or discharge. Mucous membranes pink and moist. NECK: Trachea midline. No JVD. CARDIOVASCULAR: Elevated rate and rhythm. RESPIRATORY: No accessory muscle use. Clear to auscultation. Breath sounds equal bilaterally. GASTROINTESTINAL: Abdomen soft non distended. Mild epigastric tenderness with palpation; no guarding, no rebound tenderness. Hepatic and splenic margins not palpable. MUSCULOSKELETAL: Extremities without clubbing, cyanosis, or edema. No obvious deformities. NEUROLOGICAL: Awake and alert. No obvious cranial nerve deficits. Motor grossly within normal limits. Five out of 5 muscle strength in the arms and legs. Normal speech. PSYCHIATRIC: Appropriate mood and affect; insight and judgment normal. Data Data Last Documented VS Vital Signs Date Time Temp Pulse Resp B/P (MAP) Pulse Ox O2 Delivery O2 Flow Rate FiO2 02/02/17 13:34 88 17 139/83 (101) 98 02/02/17 12:39 98.8 Room Air Orders Orders Complete Blood Count With Diff (02/02/17 11:40) Comprehensive Metabolic Panel (02/02/17 11:40) Prothrombin Time / Inr (Pt) (02/02/17 11:40) Act Partial Throm Time (Ptt) (02/02/17 11:40) Urinalysis - C+S If Indicated (02/02/17 11:40) Iv Access Insert/Monitor (02/02/17 11:40) Ecg Monitoring (02/02/17 11:40) Oximetry (02/02/17 11:40) Ondansetron Inj (Zofran Inj) (02/02/17 11:45) Sodium Chlor 0.9% 1000 Ml Inj (Ns 1000 M (02/02/17 11:40) Sodium Chloride 0.9% Flush (Ns Flush) (02/02/17 11:45) Electrocardiogram (02/02/17 11:40) Lipase (02/02/17 12:14) Labs Laboratory Tests Test 02/02/17 11:55 02/02/17 12:33 White Blood Count 12.5 TH/MM3 Red Blood Count 5.01 MIL/MM3 Hemoglobin 14.7 GM/DL Hematocrit 41.9 % Mean Corpuscular Volume 83.7 FL Mean Corpuscular Hemoglobin 29.4 PG Mean Corpuscular Hemoglobin Concent 35.1 % Red Cell Distribution Width 14.4 % Platelet Count 214 TH/MM3 Mean Platelet Volume 6.5 FL Neutrophils (%) (Auto) 84.4 % Lymphocytes (%) (Auto) 9.1 % Monocytes (%) (Auto) 5.4 % Eosinophils (%) (Auto) 0.9 % Basophils (%) (Auto) 0.2 % Neutrophils # (Auto) 10.5 TH/MM3 Lymphocytes # (Auto) 1.1 TH/MM3 Monocytes # (Auto) 0.7 TH/MM3 Eosinophils # (Auto) 0.1 TH/MM3 Basophils # (Auto) 0.0 TH/MM3 CBC Comment DIFF FINAL Differential Comment Prothrombin Time 10.1 SEC Prothromb Time International Ratio 0.9 RATIO Activated Partial Thromboplast Time 21.9 SEC Blood Urea Nitrogen 10 MG/DL Creatinine 0.75 MG/DL Random Glucose 100 MG/DL Total Protein 8.0 GM/DL Albumin 3.9 GM/DL Calcium Level 9.1 MG/DL Alkaline Phosphatase 70 U/L Aspartate Amino Transf (AST/SGOT) 12 U/L Alanine Aminotransferase (ALT/SGPT) 26 U/L Total Bilirubin 0.4 MG/DL Sodium Level 140 MEQ/L Potassium Level 4.0 MEQ/L Chloride Level 107 MEQ/L Carbon Dioxide Level 23.8 MEQ/L Anion Gap 9 MEQ/L Estimat Glomerular Filtration Rate 81 ML/MIN Lipase 291 U/L Urine Color YELLOW Urine Turbidity HAZY Urine pH 7.0 Urine Specific [place] 1.018 Urine Protein TRACE mg/dL Urine Glucose (UA) NEG mg/dL Urine Ketones NEG mg/dL Urine Occult Blood NEG Urine Nitrite NEG Urine Bilirubin NEG Urine Urobilinogen LESS THAN 2.0 MG/DL Urine Leukocyte Esterase SMALL Urine RBC 3 /hpf Urine WBC 3 /hpf Urine Squamous Epithelial Cells 11 /hpf Urine Amorphous Sediment RARE Urine Bacteria RARE /hpf Urine Mucus FEW /lpf Microscopic Urinalysis Comment CULT NOT INDICATED MDM Medical Decision Making Medical Screen Exam Complete: Yes Emergency Medical Condition: Yes Medical Record Reviewed: Yes Differential Diagnosis gastritis vs pancreatitis vs cholecystitis Narrative Course 51 year old female presents to the ED for evaluation of nausea and vomiting x 2 hours. Pt has had dry heaves here in the ED. She is given Zofran and NS bolus which seems to help. Lab work is ordered. Laboratory Tests Test 02/02/17 11:55 02/02/17 12:33 White Blood Count 12.5 TH/MM3 Red Blood Count 5.01 MIL/MM3 Hemoglobin 14.7 GM/DL Hematocrit 41.9 % Mean Corpuscular Volume 83.7 FL Mean Corpuscular Hemoglobin 29.4 PG Mean Corpuscular Hemoglobin Concent 35.1 % Red Cell Distribution Width 14.4 % Platelet Count 214 TH/MM3 Mean Platelet Volume 6.5 FL Neutrophils (%) (Auto) 84.4 % Lymphocytes (%) (Auto) 9.1 % Monocytes (%) (Auto) 5.4 % Eosinophils (%) (Auto) 0.9 % Basophils (%) (Auto) 0.2 % Neutrophils # (Auto) 10.5 TH/MM3 Lymphocytes # (Auto) 1.1 TH/MM3 Monocytes # (Auto) 0.7 TH/MM3 Eosinophils # (Auto) 0.1 TH/MM3 Basophils # (Auto) 0.0 TH/MM3 CBC Comment DIFF FINAL Differential Comment Prothrombin Time 10.1 SEC Prothromb Time International Ratio 0.9 RATIO Activated Partial Thromboplast Time 21.9 SEC Blood Urea Nitrogen 10 MG/DL Creatinine 0.75 MG/DL Random Glucose 100 MG/DL Total Protein 8.0 GM/DL Albumin 3.9 GM/DL Calcium Level 9.1 MG/DL Alkaline Phosphatase 70 U/L Aspartate Amino Transf (AST/SGOT) 12 U/L Alanine Aminotransferase (ALT/SGPT) 26 U/L Total Bilirubin 0.4 MG/DL Sodium Level 140 MEQ/L Potassium Level 4.0 MEQ/L Chloride Level 107 MEQ/L Carbon Dioxide Level 23.8 MEQ/L Anion Gap 9 MEQ/L Estimat Glomerular Filtration Rate 81 ML/MIN Lipase 291 U/L Urine Color YELLOW Urine Turbidity HAZY Urine pH 7.0 Urine Specific [place] 1.018 Urine Protein TRACE mg/dL Urine Glucose (UA) NEG mg/dL Urine Ketones NEG mg/dL Urine Occult Blood NEG Urine Nitrite NEG Urine Bilirubin NEG Urine Urobilinogen LESS THAN 2.0 MG/DL Urine Leukocyte Esterase SMALL Urine RBC 3 /hpf Urine WBC 3 /hpf Urine Squamous Epithelial Cells 11 /hpf Urine Amorphous Sediment RARE Urine Bacteria RARE /hpf Urine Mucus FEW /lpf Microscopic Urinalysis Comment CULT NOT INDICATED Pt has slight leukocytosis, likely secondary to vomiting. Otherwise labs are without acute concern. She has remained comfortable throughout her time here in the ED. I have discussed with my attending who has also assessed the patient. She is advised to stop taking the amoxicillin which could be a contributing factor to her n/v. She will be discharged home with phenergan RX and advised to return immediately with acute worsening of symptoms Diagnosis Primary Impression: Gastritis Qualified Codes: K29.00 - Acute gastritis without bleeding Referrals: [facility] Primary Care Physician Patient Instructions: Diet for Stomach Ulcers and Gastritis (ED), Gastritis (ED ), General Instructions Additional Instructions: Avoid acidic and abrasive feed Follow-up with your primary care provider Seek gastroenterology evaluation if symptoms persist Return immediately with any acute worsening symptoms Med/Other Pt SpecificInfo: Prescription(s) given Scripts Omeprazole (Omeprazole) 40 Mg Cap 40 MG PO DAILY, #30 CAP 0 Refills Prov: Mena Tinsley 02/02/17 Promethazine (Phenergan) 25 Mg Tablet 25 MG PO Q6H Y for NAUSEA OR VOMITING, #15 TAB 0 Refills Prov: Mena Tinsley 02/02/17 Disposition: 01 DISCHARGE HOME Condition: Stable Mena Tinsley Feb 02, 2017 11:41
[2017-02-02] MEDS ORDERED: SODIUM CHLORIDE 0.9% FLUSH 10 ML FLUSH IV FLUSH PRN (11:45)
[2017-02-02] MEDS ORDERED: ONDANSETRON HCL 4 MG/2 ML VIAL IVP ONE (11:45)
[2017-02-02 11:57] VITALS: BP 131/84; PULSE 61; RESP 16; TEMP 98.5; O2SAT 98
[2017-02-02 12:14] LABS: AUTOMATED NEUTROPHIL # 10.5 TH/MM3 (1.8-7.7); BASOPHIL % 0.2 % (0.0-2.0); EOSINOPHIL # 0.1 TH/MM3 (0-0.4); EOSINOPHIL % 0.9 % (0.0-4.0); HEMATOCRIT 41.9 % (35.0-46.0); HEMO FLAGS DIFF FINAL; LYMPH % 9.1 % (9.0-44.0); LYMPHOCYTE # 1.1 TH/MM3 (1.0-4.8); MEAN CELL VOLUME 83.7 FL (80.0-100.0); MEAN CORPUSCULAR HEMOGLOBIN 29.4 PG (27.0-34.0); MEAN CORPUSCULAR HGB CONC 35.1 % (32.0-36.0); MONO % 5.4 % (0.0-8.0); NEUT % 84.4 % (16.0-70.0); PLATELET COUNT 214 TH/MM3 (150-450); RED BLOOD COUNT 5.01 MIL/MM3 (4.00-5.30); RED CELL DISTRIBUTION WIDTH 14.4 % (11.6-17.2); WHITE BLOOD COUNT 12.5 TH/MM3 (4.0-11.0)
[2017-02-02 12:26] LABS: APTT (PATIENT) 21.9 SEC (24.3-30.1); INTERNATIONAL NORMALIZED RATIO 0.9 RATIO; PROTHROMBIN TIME - PATIENT 10.1 SEC (9.8-11.6)
[2017-02-02 12:37] LABS: ALT (GPT) 26 U/L (10-53); ANION GAP 9 MEQ/L (5-15); AST (GOT) 12 U/L (15-37); BICARBONATE 23.8 MEQ/L (21.0-32.0); BLOOD UREA NITROGEN 10 MG/DL (7-18); CHLORIDE 107 MEQ/L (98-107); GLOMERULAR FILTRATION RATE 81 ML/MIN (>89); SODIUM (NA) 140 MEQ/L (136-145)
[2017-02-02 12:39] VITALS: BP 132/71; PULSE 58; RESP 15; TEMP 98.8; O2SAT 97
[2017-02-02 12:39] LABS: ALKALINE PHOSPHATASE 70 U/L (45-117); TOTAL BILIRUBIN ADULT 0.4 MG/DL (0.2-1.0)
[2017-02-02 13:04] LABS: BACTERIA, URINE RARE /hpf; BLOOD, URINE NEG (NEG); COMMENT (UR) CULT NOT INDICATED; CULTURE IF INDICATED CULT NOT INDICATED; GLUCOSE,URINE NEG (NEG); KETONE, URINE NEG (NEG); MUCUS URINE FEW /lpf (OCC); NITRITE,URINE NEG (NEG); SQUAMOUS EPITHELIAL CELL URINE 11 /hpf (0-5); URINE COLOR YELLOW (YELLW/STRAW)
[2017-02-02] MEDS ORDERED: OMEP40CA2 PO (13:12)
[2017-02-02] MEDS ORDERED: PROM25TA10 PO (13:12)
--- NOTE | 2017-02-02 13:18 | PD ---
Data Data Last Documented VS Vital Signs Date Time Temp Pulse Resp B/P (MAP) Pulse Ox O2 Delivery O2 Flow Rate FiO2 02/02/17 12:39 98.8 58 15 132/71 (91) 97 Room Air Orders Orders Complete Blood Count With Diff (02/02/17 11:40) Comprehensive Metabolic Panel (02/02/17 11:40) Prothrombin Time / Inr (Pt) (02/02/17 11:40) Act Partial Throm Time (Ptt) (02/02/17 11:40) Urinalysis - C+S If Indicated (02/02/17 11:40) Iv Access Insert/Monitor (02/02/17 11:40) Ecg Monitoring (02/02/17 11:40) Oximetry (02/02/17 11:40) Ondansetron Inj (Zofran Inj) (02/02/17 11:45) Sodium Chlor 0.9% 1000 Ml Inj (Ns 1000 M (02/02/17 11:40) Sodium Chloride 0.9% Flush (Ns Flush) (02/02/17 11:45) Electrocardiogram (02/02/17 11:40) Lipase (02/02/17 12:14) Labs Laboratory Tests Test 02/02/17 11:55 02/02/17 12:33 White Blood Count 12.5 TH/MM3 Red Blood Count 5.01 MIL/MM3 Hemoglobin 14.7 GM/DL Hematocrit 41.9 % Mean Corpuscular Volume 83.7 FL Mean Corpuscular Hemoglobin 29.4 PG Mean Corpuscular Hemoglobin Concent 35.1 % Red Cell Distribution Width 14.4 % Platelet Count 214 TH/MM3 Mean Platelet Volume 6.5 FL Neutrophils (%) (Auto) 84.4 % Lymphocytes (%) (Auto) 9.1 % Monocytes (%) (Auto) 5.4 % Eosinophils (%) (Auto) 0.9 % Basophils (%) (Auto) 0.2 % Neutrophils # (Auto) 10.5 TH/MM3 Lymphocytes # (Auto) 1.1 TH/MM3 Monocytes # (Auto) 0.7 TH/MM3 Eosinophils # (Auto) 0.1 TH/MM3 Basophils # (Auto) 0.0 TH/MM3 CBC Comment DIFF FINAL Differential Comment Prothrombin Time 10.1 SEC Prothromb Time International Ratio 0.9 RATIO Activated Partial Thromboplast Time 21.9 SEC Blood Urea Nitrogen 10 MG/DL Creatinine 0.75 MG/DL Random Glucose 100 MG/DL Total Protein 8.0 GM/DL Albumin 3.9 GM/DL Calcium Level 9.1 MG/DL Alkaline Phosphatase 70 U/L Aspartate Amino Transf (AST/SGOT) 12 U/L Alanine Aminotransferase (ALT/SGPT) 26 U/L Total Bilirubin 0.4 MG/DL Sodium Level 140 MEQ/L Potassium Level 4.0 MEQ/L Chloride Level 107 MEQ/L Carbon Dioxide Level 23.8 MEQ/L Anion Gap 9 MEQ/L Estimat Glomerular Filtration Rate 81 ML/MIN Lipase 291 U/L Urine Color YELLOW Urine Turbidity HAZY Urine pH 7.0 Urine Specific [place] 1.018 Urine Protein TRACE mg/dL Urine Glucose (UA) NEG mg/dL Urine Ketones NEG mg/dL Urine Occult Blood NEG Urine Nitrite NEG Urine Bilirubin NEG Urine Urobilinogen LESS THAN 2.0 MG/DL Urine Leukocyte Esterase SMALL Urine RBC 3 /hpf Urine WBC 3 /hpf Urine Squamous Epithelial Cells 11 /hpf Urine Amorphous Sediment RARE Urine Bacteria RARE /hpf Urine Mucus FEW /lpf Microscopic Urinalysis Comment CULT NOT INDICATED MDM Supervised Visit with NELLY: Yes Narrative Course The history, exam, and medical decision-making in the associated midlevel provider note were completed with my assistance. I reviewed and agree with the findings presented. I attest that I had a [id number] encounter with the patient on the same day, and personally performed and documented my assessment and findings in the medical record. *My assessment and Findings: This is a 51-year-old female who presents to the emergency department with a bout of nausea, vomiting and diarrhea associated with epigastric discomfort. She has been on amoxicillin for an ear infection. She has a benign abdominal exam. Labs demonstrate a mild leukocytosis but are otherwise reassuring. I don't suspect a surgical etiology for her symptoms. She feels much better in the emergency Department. I suspect this is a gastroenteritis and it was likely exacerbated by amoxicillin. I asked her to discontinue her amoxicillin and she'll be discharged with symptomatic management. I don't think she requires imaging at this time but if her symptoms worsen she agreed to come back to the emergency department. Patient was discharged home. Diagnosis Primary Impression: Gastritis Qualified Codes: K29.00 - Acute gastritis without bleeding Referrals: [facility] Primary Care Physician Patient Instructions: General Instructions, Gastritis (ED), Diet for Stomach Ulcers and Gastritis (ED) Additional Instruction: Avoid acidic and abrasive feed Follow-up with your primary care provider Seek gastroenterology evaluation if symptoms persist Return immediately with any acute worsening symptoms Scripts Omeprazole (Omeprazole) 40 Mg Cap 40 MG PO DAILY, #30 CAP 0 Refills Prov: Mena Tinsley 02/02/17 Promethazine (Phenergan) 25 Mg Tablet 25 MG PO Q6H Y for NAUSEA OR VOMITING, #15 TAB 0 Refills Prov: Mena Tinsley 02/02/17 Disposition: 01 DISCHARGE HOME Condition: Stable Adele Thomas MD Feb 02, 2017 13:18
[2017-02-02 13:34] VITALS: BP 139/83
--- NOTE | 2017-02-03 13:12 | EKG ---
Date Performed: 02/02/2017 Time Performed: 11:56:04 PTAGE: 51 years EKG: Sinus rhythm NORMAL ECG PREVIOUS TRACING : 01/27/2017 18.28 Compared to prior tracing no significant change DOCTOR: Phoenix Delvalle Interpretating Date/Time 02/03/2017 13:10:33
== END 2017-02-02 13:45 | disposition home or self-care (01) ==
LOC: NEPD 11:23
DX: K29.00 Acute gastritis without bleeding (principal); Z72.0 Tobacco use
CPT/HCPCS: 80053; 81001; 83690; 85025; 85610; 85730; 93005; 96361; 96374; 99284; J2405; J7030

== ENCOUNTER 2017-03-25 09:58 | Emergency (ER) | payer SELFPAY ==
[~2017-03-25] VITALS: Ht 165.1 cm; Wt 64.0 kg
[~2017-03-25 09:58] MED LIST changes: -CIPRHC10A EACH EAR; +OMEP40CA2 PO; +PROM25TA10 PO; -TRAZ100T6 PO
[2017-03-25 10:00] VITALS: BP 153/100; PULSE 82; RESP 16; TEMP 97.7; O2SAT 100
[2017-03-25] MEDS ORDERED: TRAZ100T10 PO ×2 (11:07→11:18)
[2017-03-25] MEDS ORDERED: ZOLO100T PO (11:18)
--- NOTE | 2017-03-25 11:19 | PD ---
HPI Chief Complaint: Medication Refill Request Time Seen by Provider: 10:57 Travel History International Travel<30 days: No Contact w/Intl Traveler<30days: No Traveled to known affect area: No History of Present Illness HPI Patient is a 51-year-old female who presents to emergency room for medication refill. Patient reports that she is taking Zoloft 100 mg as well as trazodone 100 mg, reports that she ran out of her scripts a few days ago. Patient with no other complaints at this time, denies any depression, denies suicidal or homicidal ideation. Patient reports that she is only here for a refill as she does not have a primary care doctor. PFSH Past Medical History Blood Disorders: No Anxiety: Yes Depression: Yes Cancer: Yes (precancerous ovarian cells) Cardiovascular Problems: No Endocrine: No Genitourinary: No Immune Disorder: No Implanted Vascular Access Dvce: Yes Musculoskeletal: Yes (lower back pain) Neurologic: Yes (seizure at age 1) Psychiatric: Yes Reproductive: No Respiratory: No Tetanus Vaccination: < 5 Years Influenza Vaccination: Yes ?: Not : 3 Para: 3 Past Surgical History Section: Yes (X3) Hysterectomy: Yes Other Surgery: Yes (, tubal ligation, radial hysterectomy, ankle hardware, ) Social History Alcohol Use: No Tobacco Use: Yes Substance Use: No (PAST USE OF PAIN MEDS, HEROIN, & METH >60DAYS CLEAN, PER PT) Allergies-Medications (Allergen,Severity, Reaction): Coded Allergies: amoxicillin (Verified Allergy, Severe, Nausea/Vomiting, 03/25/17) Reported Meds & Prescriptions Reported Meds & Active Scripts Active Reported Trazodone (Trazodone HCl) 100 Mg Tablet 100 Mg PO HS Zoloft (Sertraline HCl) 100 Mg Tab 100 Mg PO DAILY Review of Systems General / Constitutional: No: Fever Eyes: No: Visual changes HENT: No: Headaches Cardiovascular: No: Chest Pain or Discomfort Respiratory: No: Shortness of Breath Gastrointestinal: No: Abdominal Pain Genitourinary: No: Dysuria Musculoskeletal: No: Pain Skin: No Rash Neurologic: No: Weakness Psychiatric: No: Depression Endocrine: No: Polydipsia Hematologic/Lymphatic: No: Easy Bruising Physical Exam Narrative GENERAL: Well-nourished, well-developed patient. SKIN: Focused skin assessment warm/dry. HEAD: Normocephalic. EYES: No scleral icterus. No injection or drainage. NECK: Supple, trachea midline. No JVD or lymphadenopathy. CARDIOVASCULAR: Regular rate and rhythm without murmurs, gallops, or rubs. RESPIRATORY: Breath sounds equal bilaterally. No accessory muscle use. GASTROINTESTINAL: Abdomen soft, non-tender, nondistended. MUSCULOSKELETAL: No cyanosis, or edema. BACK: Nontender without obvious deformity. No CVA tenderness. Data Data Last Documented VS Vital Signs Date Time Temp Pulse Resp B/P (MAP) Pulse Ox O2 Delivery O2 Flow Rate FiO2 03/25/17 10:00 97.7 82 16 153/100 (117) 100 [facility] Medical Decision Making Medical Screen Exam Complete: Yes Emergency Medical Condition: Yes Medical Record Reviewed: Yes Interpretation(s) Vital Signs Date Time Temp Pulse Resp B/P (MAP) Pulse Ox O2 Delivery O2 Flow Rate FiO2 03/25/17 10:00 97.7 82 16 153/100 (117) 100 Differential Diagnosis Medication refill Narrative Course 51-year-old female with history of anxiety and depression who presents to emergency room for medication refill. Patient with no complaints at this time, denies suicidal or homicidal ideation. Patient here for refill on her trazodone as well as her Zoloft. Patient understands that she will need to follow-up with her primary care doctor for further refills on her medications. [facility] referral was given to patient. Diagnosis Primary Impression: Encounter for medication refill Referrals: [facility] Patient Instructions: General Instructions Additional Instructions: Please follow-up as [facility] for further refills on your medications. Return to the emergency room as needed Med/Other Pt SpecificInfo: Prescription(s) given Scripts Trazodone (Trazodone) 100 Mg Tablet 100 MG PO HS for Control Depression, #30 TAB 0 Refills Prov: Denice Lucia DO 03/25/17 Sertraline (Zoloft) 100 Mg Tab 100 MG PO DAILY, #30 TAB 0 Refills Prov: Denice Lucia DO 03/25/17 Disposition: 01 DISCHARGE HOME Condition: Stable Denice Lucia DO Mar 25, 2017 11:19
== END 2017-03-25 11:46 | disposition home or self-care (01) ==
LOC: NEPD 09:58
DX: Z76.0 Encounter for issue of repeat prescription (principal); F41.9 Anxiety disorder, unspecified; F32.9 Major depressive disorder, single episode, unspecified; R56.9 Unspecified convulsions; Z72.0 Tobacco use; Z79.899 Other long term (current) drug therapy; Z88.0 Allergy status to penicillin
CPT/HCPCS: 99284